=== PATIENT | male | born 2000 | race Caucasian/White ===

== ENCOUNTER 2022-12-15 12:22 | Inpatient (IN) | payer OTHER, SELFPAY ==
[2022-12-15] MEDS ORDERED: Clindamycin/D5W 600 mg/50 ml Premix Bag ONE (14:03)
[2022-12-15] MEDS ORDERED: Ondansetron PF 4 MG/2 ML Vial IVP PRN (14:10)
[2022-12-15] MEDS ORDERED: Ipratropium/Albuterol 3 ML NEB NEB PRN (14:10)
[2022-12-15] MEDS ORDERED: Morphine 4 MG/ML VIAL SLOW IVP PRN (14:10)
[2022-12-15] MEDS ORDERED: Morphine 2 MG/ML VIAL SLOW IVP PRN (14:10)
[2022-12-15] MEDS ORDERED: Acetaminophen 500 MG TAB ONE (14:21)
[2022-12-15 14:33] LABS: #Eosinphils 0.1 thou/uL (0.0-0.7); #Lymphocytes 1.8 thou/uL (1.20-3.40); #Monocytes 1.8 thou/uL (0.11-0.59); #Neutrophils 12.1 thou/uL (1.40-6.50); %Basophils 0.3 % (0.0-1.0); %Eosinophils 0.4 % (0.0-10.0); %Lymphocytes 11.5 % (21.0-51.0); %Monocytes 11.5 % (0.0-10.0); %Neutrophils 76.3 % (42.0-75.0); Hemoglobin 14.4 g/dL (14.0-18.0); Mean Corpuscular HGB CONC 32.8 g/dL (32.0-36.0); Mean Corpuscular Hemoglobin 31.5 pg (27.0-31.0); Mean Corpuscular Volume 95.8 fl (78.0-98.0); Platelet Count 251 10x3/uL (130-400); RBC Distribution Width 11.8 % (11.5-14.5); Red Blood Cell (RBC) Count 4.56 mill/uL (4.70-6.10); White Blood Cell (WBC) Count 15.9 10x3/uL (4.8-10.8)
[2022-12-15 14:42] LABS: PTT 26.1 sec (22.9-36.1); Prothrombin Time 13.9 sec (12.0-14.7)
[2022-12-15 14:49] LABS: Anion Gap 13 mmol/L (10-20); BUN (Urea Nitrogen) 9 mg/dL (8.9-20.6); Calc. Creatinine Clearance 0 mL/min (70-130); Calcium 9.3 mg/dL (7.8-10.44); Carbon Dioxide 27 mmol/L (22-29); Chloride 105 mmol/L (98-107); Estimated GFR 125; Glucose 112 mg/dL (70-105); Potassium 3.8 mmol/L (3.5-5.1); Sodium 141 mmol/L (136-145)
[2022-12-15 17:11] VITALS: BMI 21.5
[2022-12-15] MEDS: Acetaminophen W/ Codeine 5 ML UDCUP PO SCH ×2 (17:46→23:58)
[2022-12-15] MEDS: Sodium Chloride 0.9% 1,000 ML IV SCH ×2 (17:49→21:43)
[2022-12-15] MEDS: Famotidine/PF 20 mg/2ml Vial SLOW IVP SCH (21:42)
[2022-12-15] MEDS: Clindamycin/D5W 900 MG in Premix Bag 1 BAG IVPB SCH (21:43)
[2022-12-16] MEDS: Acetaminophen W/ Codeine 5 ML UDCUP PO SCH ×3 (05:52→19:47)
[2022-12-16] MEDS: Clindamycin/D5W 900 MG in Premix Bag 1 BAG IVPB SCH ×2 (05:54→16:08)
[2022-12-16] MEDS: Famotidine/PF 20 mg/2ml Vial SLOW IVP SCH ×2 (08:30→22:24)
[2022-12-16] MEDS ORDERED: Midazolam HCl 2 mg/2 ml Vial ONE (10:36)
[2022-12-16] MEDS ORDERED: Lidocaine 2% 6 ML SYR ONE (10:37)
[2022-12-16] MEDS ORDERED: Oxymetazoline HCl 0.05% (30 ML BOT) ONE ×2 (10:37→11:00)
[2022-12-16] MEDS ORDERED: HYDROmorphone 0.5 MG/0.5 ML SYRINGE ONE (10:37)
[2022-12-16] MEDS ORDERED: fentaNYL PF 100 MCG/2 ML SYRINGE ONE (10:37)
[2022-12-16] MEDS ORDERED: Bupivacaine PF 0.5% 30 ML VIAL ONE (10:39)
[2022-12-16] MEDS ORDERED: Chlorhexidine Gluconate 15 ML UDCUP SSP ONE (10:39)
[2022-12-16] MEDS ORDERED: MINERAL OIL/WHITE PETROLATUM 3.5 GM TUBE ONE (10:39)
[2022-12-16] MEDS ORDERED: Neomycin-Polymyxin 1 ML AMP ONE (10:39)
[2022-12-16] MEDS ORDERED: Bupivacaine 0.25% HCL 30 ML VIAL ONE (10:39)
[2022-12-16] MEDS ORDERED: Bupivacaine/Epinephrine 0.25% 30 ML VIAL ONE (10:39)
[2022-12-16] MEDS ORDERED: Bupivacaine HCl 0.5%/Epinephrine 1:200,000/PF 30 ml Vial ONE (10:39)
[2022-12-16] MEDS ORDERED: Dexamethasone 20 MG/5 ML VIAL ONE (11:20)
[2022-12-16] MEDS ORDERED: PROPOFOL 200 MG/20 ML VIAL ONE (11:20)
[2022-12-16] MEDS ORDERED: Ondansetron PF 4 MG/2 ML Vial ONE (11:20)
[2022-12-16] MEDS ORDERED: Lidocaine 1% PF 5 ML VIAL ONE (11:20)
[2022-12-16] MEDS ORDERED: Rocuronium Bromide 10 MG/ML (10ML VIAL) ONE (11:20)
[2022-12-16] MEDS ORDERED: Dexmedetomidine 200 MCG/2 ML VIAL ONE (11:31)
[2022-12-16] MEDS ORDERED: SUGAMMADEX SODIUM 200 MG/2 ML VIAL ONE (12:04)
[2022-12-16 17:42] VITALS: BP 125/80; TEMP 97.4
[2022-12-16] MEDS ORDERED: Clindamycin 75 mg/5 ml Oral Suspension PO SCH (22:00)
== END 2022-12-16 20:00 | disposition home or self-care (01) | DRG 159 ==
LOC: ERS 12:22 → SJJU 14:10
PROVIDERS: ADMIT Surgery; ATTEND Surgery
PROC: 0NSVXZZ Reposition Left Mandible, External Approach (ICD-10-PCS; principal; 2022-12-16)
PROC: 0NST35Z Reposition Right Mandible with External Fixation Device, Percutaneous Approach (ICD-10-PCS; 2022-12-16)
DX: S02.601B Fracture of unspecified part of body of right mandible, initial encounter for open fracture (principal); S02.622A Fracture of subcondylar process of left mandible, initial encounter for closed fracture; Z20.822 Contact with and (suspected) exposure to COVID-19; Y04.0XXA Assault by unarmed brawl or fight, initial encounter
CPT/HCPCS: 36415; 70450; 70486; 80048; 83735; 84100; 85025; 85610; 85730; 86850; 86900; 86901; 96365; J1100; J1170; J2250; J2405; J2704; J3490; J7050; S0020; S0028